=== PATIENT | female | born 1990 | race Caucasian/White ===

== ENCOUNTER 2017-07-18 03:13 | Emergency (ER) | payer OTHER ==
[~2017-07-18] VITALS: Ht 172.7 cm; Wt 61.4 kg
[2017-07-18] MEDS ORDERED: VYVANSE50 MG PO (03:20)
[2017-07-18 04:31] LABS: BASO % 0.2 % (0.0-2.0); EOS % 0.1 % (0-4.0); GRAN # 12.6 (1.4-6.5); GRAN % 95.4 % (42.2-75.2); HEMATOCRIT 41.2 % (37.0-47.0); HEMOGLOBIN 14.2 g/dl (12.5-16.0); LYMPH # 0.2 (1.2-3.4); LYMPH % 1.4 % (20.0-51.0); MEAN CELL VOLUME 101 fl (80.0-100.0); MEAN CORPUSCULAR HEMOGLOBIN 35 pg (27.0-31.0); MEAN CORPUSCULAR HGB CONC 35 g/dl (33.0-37.0); MEAN PLATELET VOLUME 10.4 fl (7.4-10.4); MONO # 0.3 (0.1-0.6); MONO % 2.6 % (1.7-9.3); PLATELET COUNT 382 K/mm3 (130-400); RED BLOOD COUNT 4.09 M/mm3 (4.10-5.30); WHITE BLOOD COUNT 13.2 K/mm3 (4.8-10.8)
[2017-07-18 04:45] LABS: ADJUSTED CALCIUM 8.5 mg/dL (8.4-10.2); ALBUMIN 5.1 gm/dL (3.5-5.0); BILIRUBIN,TOTAL 1.4 mg/dL (0.0-1.0); C-REACTIVE PROTEIN 0.7 mg/dL (0.0-0.9); CALCIUM 9.4 mg/dL (8.4-10.2); CREATININE, serum 0.58 mg/dL (0.52-1.25); POTASSIUM 3.9 mmol/L (3.4-5.0); TOTAL PROTEIN 8.1 gm/dL (6.4-8.2)
[2017-07-18 05:16] LABS: COLLECTION METHOD CLEAN CATCH
[2017-07-18 05:21] LABS: PH 7 (5-8); SQUAMOUS EPITHELIAL 0-2 /hpf; URINE APPEARANCE Clear; URINE BACTERIA None Seen /hpf; URINE BILIRUBIN Negative (NEGATIVE); URINE BLOOD Negative (NEGATIVE); URINE COLOR Yellow; URINE GLUCOSE Negative (NEGATIVE); URINE KETONE 2+ (NEGATIVE); URINE LEUKOCYTE ESTERASE Negative (NEGATIVE); URINE PROTEIN(semi-quant) Negative (NEGATIVE); URINE RBC None Seen /hpf; URINE UROBILINOGEN Negative (NEGATIVE); URINE WBC 0-2 /hpf
[2017-07-18] MEDS ORDERED: NORCO 325 MG-51 TAB PO (06:50)
[2017-07-18] MEDS ORDERED: ZOFRAN 4MG T4 MG/TAB PO (06:50)
[2017-07-18 07:09] VITALS: BP 122/72; PULSE 76; TEMP 97.6
== END 2017-07-18 07:20 | disposition home or self-care (01) ==
LOC: COL.ER 03:13
PROVIDERS: Emergency Medicine
DX: R11.2 Nausea with vomiting, unspecified (principal); R10.11 Right upper quadrant pain; F90.9 Attention-deficit hyperactivity disorder, unspecified type
CPT/HCPCS: J2405; J2550; J3010; J7030; Q9967

== ENCOUNTER 2019-07-10 10:24 | Emergency (ER) | payer BC ==
[~2019-07-10] VITALS: Ht 172.7 cm; Wt 61.4 kg
[~2019-07-10 10:24] MED LIST: ADDERALL XR30 MG PO; IUD; MOTRIN 800800 MG/TAB PO; NORCO 325 MG-51 TAB PO; PERCOCET 325 MG1 TA2 PO; PRENATAL1 TA7 PO; PROFERRIN ES12 MG PO; VYVANSE50 MG PO; WELLBUTRIN XL150 MG PO; WELLBUTRIN XL300 M1 PO; ZOFRAN 4MG T4 MG/TAB PO
[2019-07-10 10:30] VITALS: TEMP 98.7
[2019-07-10] MEDS ORDERED: WELLBUTRIN SR100 M1 PO (10:54)
[2019-07-10 11:40] VITALS: BP 124/85; PULSE 69
== END 2019-07-10 11:40 | disposition home or self-care (01) ==
LOC: COL.ER 10:24
DX: F41.9 Anxiety disorder, unspecified (principal)